=== PATIENT | male | born 1940 | race Caucasian/White ===

== ENCOUNTER → 2020-03-24 12:56 | Outpatient (CLI) | payer MEDICARE, SELFPAY ==
--- NOTE | 2020-03-24 14:45 | DI.ECHO.S_ITS ---
[facility] +---------+ : : [address] : [place] : : : : [id number] : : : : Phone: [phone]+ Echocardiogram Report + + :Name: GRICELDA MATA Study Date: 03/24/2020 Height: 71 in : :[facility] Weight: 196 lb : : Gender: Male BSA: 2.1 m2 : :: 1940 Age: 79 yrs BP: 164/98 mmHg: :Reason For Study: ischemic cardiomyopathy : :Ordering Physician: NIKO, : :REHANA Performed By: Angie Drew : :Referring: REHANA PRITCHETT : + + Interpretation Summary 1) Normal left ventricular size and thickness with low normal systolic function (EF 50-55%). 2) Hypokinesis of the basal inferior wall and severe hypokinesis of the basal to mid inferolateral wall. 3) Normal right ventiruclar size and function. 4) Hypertension present during the study (BP 164/98mmHg). 5) Compared to the Echo done 11/30/2019, LVEF has improved from 45-50% to 50- 55% on this study. Procedure: The study quality was technically adequate. A two-dimensional transthoracic echocardiogram was performed in limited views only. Comparison is made with the echocardiogram of 11/30/2019. The heart rate ranged between 60-80 bpm during the study. Left Ventricle: The left ventricle is normal in size and wall thickness. The estimated left ventricular end diastolic volume is 77 ml. The ejection fraction is estimated to be 50-55%. Right Ventricle: The right ventricle is normal in size and function. Atria: The left atrium grossly appears normal in size. The right atrium is normal in size. Pericardium/ Pleura There is no pericardial effusion. There is no pleural effusion. MMode/2D Measurements & Calculations LVIDd: 4.8 cm LA A4 area: 11.3 cm2 LVIDs: 3.8 cm LA length (vol): 3.4 cm FS: 20.5 % IVSd: 1.0 cm LVPWd: 0.97 cm LV torrez. diameter/BSA (cm/m^2): 2.3 LV sys. diameter/BSA (cm/m^2): 1.8 RA long axis: 4.6 cm RVD1 (basal): 3.2 cm RA area: 11.8 cm2 TAPSE: 2.1 cm RA vol: 25.7 ml RA : 12.3 ml/m2 Reading Physician:01:01 PM
== END ==
PROVIDERS: Referring Provider Internal Medicine Cardiovascular Disease; Visit Provider Internal Medicine Cardiovascular Disease
DX: I25.5 Ischemic cardiomyopathy (principal)
CPT/HCPCS: 93307

== ENCOUNTER 2022-06-12 12:27 | Emergency (ER) | payer OTHER, SELFPAY ==
--- NOTE | 2022-06-12 12:39 | DI.RAD.S_ITS ---
PROCEDURE: XR HIP W PEL IF DONE RT 2V INDICATIONS: reported right hip pain TECHNIQUE: AP pelvis with lateral view(s) of the right hip(s). COMPARISON: None. FINDINGS: Bones: No fractures or dislocations. Pelvic ring appears intact. No suspicious bony lesions. Mild degenerative acetabular spurring and subcortical cystic cystic changes bilaterally. Soft tissues: The visualized bowel gas pattern is normal. Scattered surgical clips. No suspicious soft tissue calcifications. Mild atherosclerotic arterial calcification. IMPRESSION: 1. Mild symmetric hip joint degeneration. 2. No acute fractures. Dictated by: Sho Barnes M.D. on 06/12/2022 at 12:14 Approved by: Sho Barnes M.D. on 06/12/2022 at 12:16
--- NOTE | 2022-06-12 12:40 | ED_ITS ---
HPI - General Adult General Chief complaint: Extremity Problem,Nontraumatic Stated complaint: rt hip pain Time Seen by Provider: 06/12/22 12:34 Source: patient, EMS and old records reviewed Mode of arrival: EMS Limitations: other (dementia) History of Present Illness HPI narrative: This is an 81-year-old male with known dementia on Plavix daily who presents for reported right hip pain. Patient states no issues to myself currently he can tell me his name, he does not know exactly where he is or why he is here. He has clear speech she does try to answer questions. Unable to give me a medical history or prior surgical history. Patient reportedly had right hip pain by EMS although he was standing in the room and weight-bearing without issue when I arrived. Patient denies any chest pain, shortness of breath, no nausea or vomiting no diarrhea constipation or other GI or urinary symptoms. No reported falls or trauma per EMS. Related Data Allergies Allergy/AdvReac Type Severity Reaction Status Date / Time INGREDIENT: NO KNOWN - NO Allergy Unknown Uncoded 08/31/17 13:10 KNOWN DRUG ALLERGY Review of Systems Review of Systems ROS Unobtainable: All systems reviewed & are unremarkable except as noted in HPI and below Exam Narrative Exam Narrative: GEN: Elderly appearing male, alert and oriented to self, patient appears to be in mild distress. Patient generally cooperative and redirectable. HEENT: Atraumatic, pupils are equal round reactive to light, extraocular movements are intact, nares are clear, TMs are clear with no fluid, there is no conjunctival pallor. Throat is clear without any exudates, erythema, tonsillar enlargement or uvular deviation HEART: Regular rate and rhythm without murmur, clicks, rubs. No carotid bruits, pulses are equal in upper and lower extremities LUNGS:Lungs clear to auscultation, no wheezes, rales, crackles, chest moves symmetrically ABD:bowel sounds normal, soft, non-tender, no guarding, rebound, rigidity, no m asses noted, no hepatosplenomegaly :No CVA tenderness BACK: No cervical, thoracic or lumbar vertebral point tenderness. Patient has normal range of motion. Muscle strength is 5/5 in upper and lower extremities. Sensation intact in all 4 extremities. Patient has 2+ pulses upper and lower. No edema bilateral lower extremities. Patient weight bears without issue. MSCL: Non-tender all 4 extremities, full range of motion, normal gait NEURO:CN 2-12 intact, sensation normal, clear speech. SKIN: No rash, erythema, ecchymosis or other skin changes appreciated. Initial Vital Signs Initial Vital Signs: Vital Signs Temperature 97.8 F 06/12/22 12:47 Pulse Rate 92 H 06/12/22 12:47 Respiratory Rate 18 06/12/22 12:47 Blood Pressure 146/68 H 06/12/22 12:47 Pulse Oximetry 96 06/12/22 12:47 Oxygen Delivery Method 06/12/22 12:47 Course Orders Ordered: ED Orders 06/12/22 12:39 XR hip w pel if done RT 2V Stat CBC Auto Diff [Complete Blood Count AUTO DIFF] Stat CMP [Comprehensive Metabolic Panel] Stat Lipase Stat 06/12/22 12:43 EKG-12 Lead Stat 06/12/22 12:45 Covid-19 + FLU A/B + RSV - PCR Stat Vital Signs Vital signs: Vital Signs - 8 hr 06/12/22 12:47 06/12/22 13:26 06/12/22 13:02 Temperature 97.8 F Pulse Rate 92 H 80 Pulse Rate [Right Dorsalis Pedis] 60 Respiratory Rate 18 Blood Pressure 146/68 H Pulse Oximetry 96 100 Oxygen Delivery Method Room Air Medical Decision Making Lab Data Result diagrams: 06/12/22 13:20 06/12/22 13:20 Labs: Lab Results 06/12/22 06/12/22 06/12/22 Range/Units 12:45 13:20 13:20 WBC 6.7 (4.5-11.0) X10^3/uL RBC 4.21 L (4.5-5.9) X10^6/uL Hgb 13.2 L (13.5-17.5) g/dL Hct 38.5 L (41-53) % MCV 91.4 (80-100) fL MCH 31.4 (26-34) PG MCHC 34.3 (30-36) % RDW 14.0 (11.6-14.8) % Plt Count 174 (150-400) X10^3/uL Neut % (Auto) 76.7 H (50-75) % Lymph % (Auto) 13.5 L (25-40) % [place] % (Auto) 7.9 (3-14) % Eos % (Auto) 1.1 L (2-4) % Baso % (Auto) 0.8 (0-2) % Neut # (Auto) 5100 (4628-3965) /uL Lymph # (Auto) 900 L (9335-2385) /uL [place] # (Auto) 500 (0-900) /uL Eos # (Auto) 100 (0-450) /uL Baso # (Auto) 100 (0-100) /uL Sodium 137 (137-145) mmol/L Potassium 3.8 (3.4-5.1) mmol/L Chloride 99 (98-107) mmol/L Carbon Dioxide 24 (22-32) mmol/L BUN 17 (9-20) mg/dL Creatinine 0.75 (0.66-1.25) mg/dL Estimated GFR > 60 (>60) mL/min BUN/Creatinine Ratio 22.7 H (6-22) Glucose 100 (80-110) mg/dL Calcium 8.8 (8.4-10.2) mg/dL Total Bilirubin 0.3 (0.2-1.3) mg/dL AST 20 (17-59) IU/L ALT 19 (<50) IU/L Alkaline Phosphatase 106 (38-126) U/L Total Protein 7.4 (6.3-8.2) g/dL Albumin 4.0 (3.5-5.0) g/dL Globulin 3.4 (1.7-4.1) g/dL Albumin/Globulin Ratio 1.2 (1.0-2.8) Lipase 86 (23-300) U/L SARS-CoV-2 (PCR) Negative (Negative) Influenza A (RT-PCR) Flu a negative (NEGATIVE) Influenza B (RT-PCR) Flu b negative (NEGATIVE) RSV (PCR) Negative (Negative) Urine Dip Bedside Urine Glucose Negative Bedside Urine Bilirubin - Negative Bedside Urine Ketone - Negative Urine Specific [place] 1.015 Bedside Urine Occult Blood - Negative Bedside Urine pH 6.0 Bedside Urine Protein - Negative Bedside Urine Urobilinogen - Negative Bedside Urine Nitrite - Negative Bedside Urine Leukocytes - Negative Esterase Point of care testing: Urine Dip Bedside Urine Glucose Negative Bedside Urine Bilirubin - Negative Bedside Urine Ketone - Negative Urine Specific [place] 1.015 Bedside Urine Occult Blood - Negative Bedside Urine pH 6.0 Bedside Urine Protein - Negative Bedside Urine Urobilinogen - Negative Bedside Urine Nitrite - Negative Bedside Urine Leukocytes - Negative Esterase Imaging Data Extremity x-ray #1: Radiologist's Impression: [address] [address] XRay Report Signed Patient: Walt Cervantes MR#: [id number] : 1940 Acct:[id number] Age/Sex: 81 / M Date of Service: 06/12/22 Loc: ED Accession Number: [id number] ?? Procedure: XR hip w pel if done RT 2V Ordering Provider: Deborah Liao D.O. PROCEDURE:? XR HIP W PEL IF DONE RT 2V ? INDICATIONS:? reported right hip pain ? TECHNIQUE:? AP pelvis with lateral view(s) of the right hip(s).? ? COMPARISON:? None. ? FINDINGS:? ? Bones:? No fractures or dislocations.? Pelvic ring appears intact.? No suspicious bony lesions.? Mild degenerative acetabular spurring and subcortical cystic cystic changes bilaterally. ? Soft tissues:? The visualized bowel gas pattern is normal.? Scattered surgical clips.? No suspicious soft tissue calcifications.? Mild atherosclerotic arterial calcifi cation. ? ? IMPRESSION:? ? 1. Mild symmetric hip joint degeneration. ? 2. No acute fractures.? Dictated by: Sho Barnes M.D. on 06/12/2022 at 12:14 ? ? Approved by: Sho Barnes M.D. on 06/12/2022 at 12:16?? ECG Data Attestation: I personally reviewed and interpreted this ECG as follows: Prior ECG tracings: not available for review Interpretation: Sinus rhythm occasional PVC, right bundle branch and left anterior fascicular block. Rate 80 UT 182 QRS of 138 QTC of 468. No priors for comparison. MDM Narrative Medical decision making narrative: This is a 81-year-old male sent for possible right hip pain although patient standing moving without any pain on palpation. X-ray was obtained shows some mild arthritis but no other changes. Patient himself does not have any other complaints currently although he does have dementia vitals appear appropriate, EKG shows bundle-branch block and left anterior fascicular block he is COVID/influenza RSV negative. He has some mild anemia, LFTs, renal function, electrolytes do not show major changes. Urine is negative. Patient does not h ave any other complaints. Vital signs are appropriate and patient appropriate for discharge back to his home. Discharge Plan Departure Patient Disposition: Home Clinical Impression: Anemia Activity Restrictions/Additional Instructions: You have a mild anemia today on your labs this may be your baseline do not have any priors for comparison. Imaging of your right hip is negative and normal has been ambulating and weight- bearing without any issue and is nontender on examination. Please return for new or concerning changes. Referrals: Miscellaneous,Doctor, MD [Primary Care Provider] - Stand Alone Forms: Patient Portal/API
[2022-06-12 12:47] VITALS: BP 146/68; PULSE 92; RESP 18; TEMP 36.6; O2SAT 96; BMI 28.7
[2022-06-12 13:02] VITALS: PULSE 80; O2SAT 100
[2022-06-12 13:26] VITALS: PULSE 60
[2022-06-12 13:30] VITALS: PULSE 84
[2022-06-12 13:30] LABS: Add Manual Diff / Slide Review NO; Basophils Absolute Auto 100 /uL (0-100); Basophils Percent Auto 0.8 % (0-2); Eosinophils Absolute Auto 100 /uL (0-450); Eosinophils Percent Auto 1.1 % (2-4); Hematocrit 38.5 % (41-53); Hemoglobin 13.2 g/dL (13.5-17.5); Lymphocytes Absolute Auto 900 /uL (1100-4500); Lymphocytes Percent Auto 13.5 % (25-40); Mean Corpuscular HGB Conc 34.3 % (30-36); Mean Corpuscular Hemoglobin 31.4 PG (26-34); Mean Corpuscular Volume 91.4 fL (80-100); Monocytes Absolute Auto 500 /uL (0-900); Monocytes Percent Auto 7.9 % (3-14); Neutrophils Absolute Auto 5100 /uL (1500-7000); Neutrophils Percent Auto 76.7 % (50-75); Platelet Count 174 X10^3/uL (150-400); Red Blood Cell Count 4.21 X10^6/uL (4.5-5.9); White Blood Cell Count 6.7 X10^3/uL (4.5-11.0)
[2022-06-12 13:34] LABS: Influenza A - CEPHEID Flu A NEGATIVE (NEGATIVE); Influenza B - CEPHEID Flu B NEGATIVE (NEGATIVE); Respiratory Syncytial Virus Negative (Negative)
[2022-06-12 13:35] LABS: COVID-19 CEPHEID 4-PLEX PCR Negative (Negative)
[2022-06-12 13:40] LABS: Alanine Aminotransferase 19 IU/L (<50); Albumin Globulin Ratio 1.2 (1.0-2.8); Alkaline Phosphatase 106 U/L (38-126); Aspartate Aminotransferase 20 IU/L (17-59); BUN Creatinine Ratio 22.7 (6-22); Bilirubin Total 0.3 mg/dL (0.2-1.3); Blood Urea Nitrogen 17 mg/dL (9-20); Calcium 8.8 mg/dL (8.4-10.2); Carbon Dioxide 24 mmol/L (22-32); Chloride 99 mmol/L (98-107); Estimated Glomerular Filt Rate > 60 mL/min (>60); Globulin 3.4 g/dL (1.7-4.1); Glucose 100 mg/dL (80-110); HEMOLYSIS < 15 (0-50); Lipase 86 U/L (23-300); Potassium 3.8 mmol/L (3.4-5.1); Sodium 137 mmol/L (137-145); Total Protein 7.4 g/dL (6.3-8.2)
[2022-06-12 16:13] VITALS: BP 123/90; PULSE 91; RESP 18; O2SAT 99
== END 2022-06-12 16:17 | disposition home or self-care (01) ==
PROVIDERS: Emergency Provider Emergency Medicine
DX: M25.551 Pain in right hip (principal); D64.9 Anemia, unspecified; I49.3 Ventricular premature depolarization; I45.10 Unspecified right bundle-branch block
CPT/HCPCS: 0241U; 36415; 73502; 80053; 81003; 83690; 85025; 93005; 99283